=== PATIENT | male | born 2005 | race Caucasian/White ===

== ENCOUNTER 2024-04-18 19:30 | Inpatient (IN) | payer MEDICAID, OTHER, SELFPAY ==
[2024-04-18 21:38] VITALS: BMI 23.9
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
[2024-04-19] MEDS: hydrOXYzine HCL 25 MG TABLET PO ×2 (02:29→21:11)
[2024-04-19 08:47] VITALS: BP 118/71; PULSE 80; RESP 18; TEMP 36.7; O2SAT 99
[2024-04-19 09:29] LABS: Alanine Aminotransferase 26 U/L (0-40); Albumin Level 4.3 g/dL (3.5-5.0); Alkaline Phosphatase 91 U/L (39-117); Anion Gap 13 (12-20); Aspartate Amino Transferase 19 U/L (5-37); Bilirubin Total 0.7 mg/dL (0.0-1.0); Blood Urea Nitrogen 9 mg/dL (9-16); Calcium 9.5 mg/dL (8.4-10.2); Carbon Dioxide 26 mmol/L (22-29); Chloride 105 mmol/L (96-108); Cholesterol 189 mg/dL (<200); Creatinine Clr Calc Pharmacy 150.1; Estimated Glomerular Filt Rate > 60; Glucose Fasting 157 mg/dL (60-99); HDL Cholesterol 54 mg/dL (>40); LDL Cholesterol Calculated 111 mg/dL (<100); Potassium 3.9 mmol/L (3.3-5.1); Sodium 140 mmol/L (135-145); Total Protein 6.8 g/dL (6.5-8.0); Triglycerides 122 mg/dL (<150)
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
[2024-04-19 10:06] VITALS: BMI 24.2
--- NOTE | 2024-04-19 11:34 | P.CONHOSP_ITS ---
History of Present Illness Data of Consult Service Date: 04/19/24 Primary Care Provider: Unknown Physician HPI Reason for consult: Admission H&P Pt is a 18-year-old male with no known significant PMH who is admitted to [facility] psychiatry unit for increasing agitation and anxiety. Patient was recently admitted for new onset psychosis and discharged on olanzapine. Patient and family report noncompliance with home medication. Medical consult for admission H&P. ?Patient denies any acute medical complaints at this time. No chest pain/pressure, palpitations. Denies shortness of breath. No fever, chills, nausea, vomiting, abdominal pain. No headache or acute vision changes. Denies any changes to bowel bladder habits. Labs reviewed, grossly unremarkable. Vital signs stable. Review of Systems 2 Review of Systems: Patient denies any acute medical complaints at this time [facility] Social History Household Members: Family Household Members Other:: Brother, uncle and friends Housing: Unknown / Unable to assess Do you presently have visiting nurse or other home services: No Patient Tobacco Use Status: Never used Tobacco Smoked in Last 30 Days: No e-Cigarette/Vaping Use: Never Used Patient Interested in Nicotine Replacement: No Patient Given Instructions on How to Stop Smoking: No Second Hand Smoke Exposure: No Use of substances other than those prescribed or required for medical reasons: Yes Substance Use Type: Crack/Cocaine and Marijuana Last Used Substance: Unknown Currently Displaying Signs/Symptoms of Drug Intoxication Withdrawal: No Advance Directives: No Advance Directives Information Provided: No Do you have thoughts of harming others: None Do you have a plan to hurt others: No Plan Recently lost weight without trying: Unsure How much weight loss: Unsure Eating poorly because of decreased appetite: No Nutrition screen score: 4 Nutrition Risks: No Nutritional Risk Poor oral hygiene: No Meds Allergies Allergy/AdvReac Type Severity Reaction Status Date / Time No Known Allergies Allergy Verified 04/18/24 21:42 Active Medications: Current Medications Acetaminophen (Acetaminophen 325 Mg Tablet) 650 mg PO Q6H PRN PRN Reason: Headache/Pain Mild Scale (1-3) Al Hydroxide/Mg Hydroxide (Magnesium Hydrox/Alum Hydrox 30 Ml Oral.Susp) 30 ml PO Q6H PRN PRN Reason: Heartburn/Nausea Hydroxyzine HCl (Hydroxyzine Hcl 25 Mg Tablet) 25 mg PO Q6H PRN PRN Reason: Anxiety Last Admin: 04/19/24 02:29 Dose: 25 mg Magnesium Hydroxide (Milk Of Magnesia 30 Ml Oral.Susp) 30 ml PO DAILY PRN PRN Reason: Constipation Nicotine (Nicotine 21 Mg Patch.Td24) 21 mg TRANSDERMA DAILY PRN PRN Reason: smoking cessation Nicotine Polacrilex (Nicotine Polacrilex 2 Mg Gum) 4 mg BUCCAL Q2H PRN PRN Reason: nicotine cravings Olanzapine (Olanzapine 10 Mg Tablet) 10 mg PO BEDTIME MATHEW Olanzapine (Olanzapine 5 Mg Tablet) 5 mg PO TID PRN PRN Reason: agitation Trazodone HCl (Trazodone Hcl 50 Mg Tablet) 50 mg PO BEDTIME MRX1 PRN PRN Reason: Insomnia Home Medications ?Medication ?Instructions ?Recorded ?Confirmed ?Last Taken ?Type olanzapine 10 mg tablet (Zyprexa) 10 mg PO BEDTIME 04/19/24 04/19/24 Unknown History Physical Exam 2 Vital Signs and Narrative: Vital Signs: Last Vital Signs Temp 98.1 F 04/19/24 08:47 Pulse 80 04/19/24 08:47 Resp 18 04/19/24 08:47 BP 118/71 04/19/24 08:47 Pulse Ox 99 04/19/24 08:47 O2 Del Method Room Air 04/19/24 08:47 BMI result Body Mass Index 24.2 General: AOx3, no acute distress Resp: CTA bilaterally CVS: S1, S2, RRR GI: +BS, NT, no distention Skin: Warm, dry Neuro: Cranial nerves II-XII grossly intact bilaterally. Motor grossly intact bilaterally Extremities: No edema Psych: Appropriate affect Results Labs 04/19/24 09:06 Labs: Laboratory Results - last 24 hr 04/19/24 09:06 Anion Gap 13 Estim Creat Clear Calc 150.1 Estimated GFR > 60 Fasting Glucose 157 H Calcium 9.5 Total Bilirubin 0.7 AST 19 ALT 26 Alkaline Phosphatase 91 Total Protein 6.8 Albumin 4.3 Triglycerides 122 Cholesterol 189 LDL Cholesterol, Calc 111 H HDL Cholesterol 54 Assessment and Plan (1) Medical clearance for psychiatric admission: Status: Acute Plan Pt is a 18-year-old male with no known significant PMH who is admitted to psychiatry unit for increasing agitation and anxiety. Patient was recently admitted for new onset psychosis and discharged on olanzapine. Patient and family report noncompliance with home medication. Medical consult for admission H&P. ?Patient denies any acute medical complaints at this time. Mood disorder Plan as per psychiatry Pt otherwise has not acute medical complaints or chronic medical conditions. Will sign of at this time. Thank you for allowing us to participate in the care of this patient.
[2024-04-19 20:00] VITALS: BP 132/69; PULSE 84; RESP 18; TEMP 37; O2SAT 98
[2024-04-19] MEDS: traZODone HCL 50 MG TABLET PO (21:11)
[2024-04-19] MEDS: OLANZapine 10 MG TABLET PO (21:12)
[2024-04-20 08:00] VITALS: BP 118/61; PULSE 76; RESP 16; TEMP 36.4; O2SAT 98
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
[2024-04-20] MEDS: risperiDONE 1 MG TABLET PO ×2 (14:31→20:26)
[2024-04-20 20:00] VITALS: BP 138/79; PULSE 109; RESP 18; TEMP 37.3; O2SAT 98
[2024-04-20] MEDS: OLANZapine 10 MG TABLET PO (20:26)
--- NOTE | 2024-04-21 07:59 | P.PNPSI_ITS ---
Subjective Subjective Date of Service: 04/21/24 Reason For Visit: f29 Interim History: Pt seen w yasminere; pt reports he is ding well taking meds,, sleeping, eating, he denies voices, denies SI or HI. appears very anxious, slept most of the night. PHe is taking olanzapine, which he took at [facility] with little benefit. We discussed trying different, higher potency antipsychotic. Review of Systems Review of Systems Patient denies any acute medical complaints at this time Mental Status Exam Mental Status Exam Narrative: Pt is alert and oriented; behavior is cooperative, friendly and calm; patient is not in distress; dressed in casual attire well groomed, adequate hygiene; mood is described as good and affect congruent, and smiles a lot; eye contact appropriate; Speech is normal rate, volume and prosody and not pressured; no psychomotor agitation/retardation present; thought process is goal directed; Thought content is on AH, but no expressions of any delusional or paranoid ideations; denies any SI/HI. Endorses AH of his name being screamed; some internal preoccupation apparent Patients insight and judgment impaired Diagnostics Vital Signs (24Hr): Vital Signs - 24 hr 04/20/24 08:00 04/20/24 20:00 Temperature 97.6 F 99.1 F Pulse Rate 76 109 H Respiratory Rate 16 18 Blood Pressure 118/61 138/79 Pulse Oximetry 98 98 Oxygen Delivery Method Room Air Room Air BMI result Body Mass Index 24.2 Labs 04/19/24 09:06 Labs: Laboratory Results - last 48 hr 04/19/24 09:06 Sodium 140 Potassium 3.9 Chloride 105 Carbon Dioxide 26 Anion Gap 13 BUN 9 Creatinine 0.74 Estim Creat Clear Calc 150.1 Estimated GFR > 60 Fasting Glucose 157 H Calcium 9.5 Total Bilirubin 0.7 AST 19 ALT 26 Alkaline Phosphatase 91 Total Protein 6.8 Albumin 4.3 Triglycerides 122 Cholesterol 189 LDL Cholesterol, Calc 111 H HDL Cholesterol 54 Medications Medications Current Medications Acetaminophen (Acetaminophen 325 Mg Tablet) 650 mg PO Q6H PRN PRN Reason: Headache/Pain Mild Scale (1-3) Al Hydroxide/Mg Hydroxide (Magnesium Hydrox/Alum Hydrox 30 Ml Oral.Susp) 30 ml PO Q6H PRN PRN Reason: Heartburn/Nausea Hydroxyzine HCl (Hydroxyzine Hcl 25 Mg Tablet) 25 mg PO Q6H PRN PRN Reason: Anxiety Last Admin: 04/19/24 21:11 Dose: 25 mg Magnesium Hydroxide (Milk Of Magnesia 30 Ml Oral.Susp) 30 ml PO DAILY PRN PRN Reason: Constipation Nicotine (Nicotine 21 Mg Patch.Td24) 21 mg TRANSDERMA DAILY PRN PRN Reason: smoking cessation Nicotine Polacrilex (Nicotine Polacrilex 2 Mg Gum) 4 mg BUCCAL Q2H PRN PRN Reason: nicotine cravings Olanzapine (Olanzapine 10 Mg Tablet) 10 mg PO BEDTIME MATHEW Last Admin: 04/20/24 20:26 Dose: 10 mg Olanzapine (Olanzapine 5 Mg Tablet) 5 mg PO TID PRN PRN Reason: agitation Risperidone (Risperidone 1 Mg Tablet) 1 mg PO BID MATHEW Last Admin: 04/20/24 20:26 Dose: 1 mg Trazodone HCl (Trazodone Hcl 50 Mg Tablet) 50 mg PO BEDTIME MRX1 PRN PRN Reason: Insomnia Last Admin: 04/19/24 21:11 Dose: 50 mg Allergies Allergies Allergy/AdvReac Type Severity Reaction Status Date / Time No Known Allergies Allergy Verified 04/18/24 21:42 Assessment & Plan Assessment & Plan (1) Psychosis: Status: Acute Code(s): F29 - Unspecified psychosis not due to a substance or known physiological condition Plan Patient seen with machine long goods helper Patient is a 18-year-old [place] Zealander-speaking male with history of psychotic illness who presents for his 2nd psychiatric hospitalization, brought to the emergency room by his brother for psychotic symptoms. Patient initially says he is fine and not sure why he is at the hospital but then says it was because he was not sleeping and talking to himself that his brother brought him. Patient acknowledges that he has auditory hallucination of a voice screaming his name. He is a little ambivalent about if it bothers him but agrees that it makes it hard for him to sleep. Patient says he has not slept much for the past several days. 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 Patient was recently brought to a psychiatric hospital where he was started on Zyprexa; he said taking it did not alter the voices; he soon stopped taking it, saying he did not want it and that he felt fine. Patient denies any SI or HI; reports smoking cannabis daily; sometimes cocaine but not for several weeks. Seldom alcohol. Formulation/clinical reasoning: It seems that patient is likely in the middle of 1st break for psychotic illness; he says he has not slept for days though currently he does not appear manic. It seems he took some amount of Zyprexa for short period of time though denies that it did anything for his auditory hallucinations. Will need collateral to better understand patient's illness. Patient gave permission to call his older brother Leo and gave his phone number. -patient educated on psychotic illness and the benefits of medication and is amenable to taking antipsychotics. -patient was physically and chemically restrained in the ED however Currently patient in behavioral and impulse control; internally preoccupied; will hold off restarting Zyprexa if possible until can get collateral 04/20 start risperidone 1mg po BID, as olanzapine was not as effective for him for psychosis and delusions. He also signed CV able to show understanding that he is in a psychiatric unit and is in agreement to receive treatment. also explained 3 day notice should he wants to leave before it is recommended by his treatment team. 04/21 continue tx llan Plan: CV Q 15 minute checks Zyprexa p.r.n. Repeat creatinine WNL Fasting blood glucose mildly elevated Reviewed labs from sending facility: UDS positive for cannabis only Lytes, BUN, LFTs, CBC WNL creatinine mildly elevated Reason for continued inpatient stay Substantial Risk for: harm to self, inability to function and rapid decompensation Time Spent With Patient Time: Total time managing care of this patient today ____ minutes.
[2024-04-21] MEDS: risperiDONE 1 MG TABLET PO ×2 (08:51→20:55)
[2024-04-21 08:53] VITALS: BP 137/73; PULSE 70; RESP 16; TEMP 36.4; O2SAT 98
[2024-04-21] MEDS: hydrOXYzine HCL 25 MG TABLET PO (17:10)
[2024-04-21 20:00] VITALS: BP 162/87; PULSE 101; RESP 19; TEMP 36.8; O2SAT 100
[2024-04-21] MEDS: traZODone HCL 50 MG TABLET PO (20:55)
[2024-04-21] MEDS: OLANZapine 10 MG TABLET PO (20:55)
[2024-04-22] MEDS: risperiDONE 1 MG TABLET PO ×2 (08:39→20:10)
[2024-04-22 08:42] VITALS: BP 122/75; PULSE 88; RESP 18; TEMP 36.8; O2SAT 98
[2024-04-22] MEDS: OLANZapine 5 MG TABLET PO (10:17)
--- NOTE | 2024-04-22 10:22 | P.PNPSI_ITS ---
Subjective Subjective Date of Service: 04/22/24 Reason For Visit: f29 Interim History: Pt seen w sara; pt reports he is doing well. taking meds,says he knows they mke him feel better; he is sleeping, eating, he denies voices, denies SI or HI. appears less anxious, slept most of the night. Pt wants to go home and says he intends to take meds after discharge and that his brother is supportive. Medication Compliance: Yes Side effects from medications: No Review of Systems Acute medical concerns: No Medical Review of Systems: unchanged Review of Systems Review of Systems Patient denies any acute medical complaints at this time Mental Status Exam Mental Status Exam Narrative: Pt is alert and oriented; behavior is cooperative, friendly and calm; patient is anxious, dressed in casual attire well groomed, good hygiene; mood is described as good and affect congruent, and smiles easily; eye contact appropriate; Speech is normal rate, volume and prosody and not pressured; no psychomotor agitation/retardation present; thought process is goal directed; Denies AH; denies any SI/HI. Patients insight and judgment improved Diagnostics Vital Signs (24Hr): Vital Signs - 24 hr 04/21/24 20:00 04/22/24 08:42 Temperature 98.2 F 98.2 F Pulse Rate 101 H 88 Respiratory Rate 19 18 Blood Pressure 162/87 H 122/75 Pulse Oximetry 100 98 Oxygen Delivery Method Room Air Room Air BMI result Body Mass Index 24.2 Labs 04/19/24 09:06 Medications Medications Current Medications Acetaminophen (Acetaminophen 325 Mg Tablet) 650 mg PO Q6H PRN PRN Reason: Headache/Pain Mild Scale (1-3) Al Hydroxide/Mg Hydroxide (Magnesium Hydrox/Alum Hydrox 30 Ml Oral.Susp) 30 ml PO Q6H PRN PRN Reason: Heartburn/Nausea Hydroxyzine HCl (Hydroxyzine Hcl 25 Mg Tablet) 25 mg PO Q6H PRN PRN Reason: Anxiety Last Admin: 04/21/24 17:10 Dose: 25 mg Magnesium Hydroxide (Milk Of Magnesia 30 Ml Oral.Susp) 30 ml PO DAILY PRN PRN Reason: Constipation Nicotine (Nicotine 21 Mg Patch.Td24) 21 mg TRANSDERMA DAILY PRN PRN Reason: smoking cessation Nicotine Polacrilex (Nicotine Polacrilex 2 Mg Gum) 4 mg BUCCAL Q2H PRN PRN Reason: nicotine cravings Olanzapine (Olanzapine 10 Mg Tablet) 10 mg PO BEDTIME MATHEW Last Admin: 04/21/24 20:55 Dose: 10 mg Olanzapine (Olanzapine 5 Mg Tablet) 5 mg PO TID PRN PRN Reason: agitation Last Admin: 04/22/24 10:17 Dose: 5 mg Risperidone (Risperidone 1 Mg Tablet) 1 mg PO BID MATHEW Last Admin: 04/22/24 08:39 Dose: 1 mg Trazodone HCl (Trazodone Hcl 50 Mg Tablet) 50 mg PO BEDTIME MRX1 PRN PRN Reason: Insomnia Last Admin: 04/21/24 20:55 Dose: 50 mg Allergies Allergies Allergy/AdvReac Type Severity Reaction Status Date / Time No Known Allergies Allergy Verified 04/18/24 21:42 Assessment & Plan Assessment & Plan (1) Psychosis: Status: Acute Code(s): F29 - Unspecified psychosis not due to a substance or known physiological condition Plan Patient seen with cyber systems operations specialist Patient is a 18-year-old Italian-speaking male with history of psychotic illness who presents for his 2nd psychiatric hospitalization, brought to the emergency room by his brother for psychotic symptoms. Patient initially says he is fine and not sure why he is at the hospital but then says it was because he was not sleeping and talking to himself that his brother brought him. Patient acknowledges that he has auditory hallucination of a voice screaming his name. He is a little ambivalent about if it bothers him but agrees that it makes it hard for him to sleep. Patient says he has not slept much for the past several days. 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 Patient was recently brought to a psychiatric hospital where he was started on Zyprexa; he said taking it did not alter the voices; he soon stopped taking it, saying he did not want it and that he felt fine. Patient denies any SI or HI; reports smoking cannabis daily; sometimes cocaine but not for several weeks. Seldom alcohol. Formulation/clinical reasoning: It seems that patient is likely in the middle of 1st break for psychotic illness; he says he has not slept for days though currently he does not appear manic. It seems he took some amount of Zyprexa for short period of time though denies that it did anything for his auditory hallucinations. Will need collateral to better understand patient's illness. Patient gave permission to call his older brother Leo and gave his phone number. -patient educated on psychotic illness and the benefits of medication and is amenable to taking antipsychotics. -patient was physically and chemically restrained in the ED however Currently patient in behavioral and impulse control; internally preoccupied; will hold off restarting Zyprexa if possible until can get collateral 04/20 start risperidone 1mg po BID, as olanzapine was not as effective for him for psychosis and delusions. He also signed CV able to show understanding that he is in a psychiatric unit and is in agreement to receive treatment. also explained 3 day notice should he wants to leave before it is recommended by his treatment team. 04/21 continue tx llan 04/22 continue tx plan Plan: CV Q 15 minute checks Zyprexa p.r.n. Repeat creatinine WNL Fasting blood glucose mildly elevated Reviewed labs from sending facility: UDS positive for cannabis only Lytes, BUN, LFTs, CBC WNL creatinine mildly elevated Reason for continued inpatient stay Substantial Risk for: harm to self and inability to function Time Spent With Patient Time: Total time managing care of this patient today ____ minutes.
[2024-04-22 20:00] VITALS: BP 133/74; PULSE 104; RESP 16; TEMP 36.9; O2SAT 98
[2024-04-22] MEDS: OLANZapine 10 MG TABLET PO (20:11)
[2024-04-23] MEDS: risperiDONE 1 MG TABLET PO ×2 (08:45→20:55)
[2024-04-23 08:46] VITALS: BP 114/58; PULSE 80; RESP 18; TEMP 36.9; O2SAT 98
[2024-04-23] MEDS: OLANZapine 5 MG TABLET PO (11:47)
--- NOTE | 2024-04-23 11:47 | P.PNPSI_ITS ---
Subjective Subjective Date of Service: 04/23/24 Reason For Visit: f29 Interim History: Pt is visibel in milieu; taking meds; he is sleeping, eating, he denies voices, denies SI or HI. appears less anxious, slept most of the night. Pt wants to go home and says he intends to take meds after discharge and that his brother is supportive. Medication Compliance: Yes Side effects from medications: No Attending Groups: Intermittent Review of Systems Acute medical concerns: No Review of Systems Review of Systems Patient denies any acute medical complaints at this time Mental Status Exam Mental Status Exam Narrative: Pt is alert and oriented; behavior is cooperative, friendly and calm; patient is anxious, dressed in casual attire well groomed, good hygiene; mood is described as good and affect congruent, and smiles easily; eye contact appropriate; Speech is normal rate, volume and prosody and not pressured; no psychomotor agitation/retardation present; thought process is goal directed; Denies AH; denies any SI/HI. Patients insight and judgment improved Diagnostics Vital Signs (24Hr): Vital Signs - 24 hr 04/22/24 20:00 04/23/24 08:46 Temperature 98.5 F 98.4 F Pulse Rate 104 H 80 Respiratory Rate 16 18 Blood Pressure 133/74 114/58 L Pulse Oximetry 98 98 Oxygen Delivery Method Room Air Room Air BMI result Body Mass Index 24.2 Labs 04/19/24 09:06 Medications Medications Current Medications Acetaminophen (Acetaminophen 325 Mg Tablet) 650 mg PO Q6H PRN PRN Reason: Headache/Pain Mild Scale (1-3) Al Hydroxide/Mg Hydroxide (Magnesium Hydrox/Alum Hydrox 30 Ml Oral.Susp) 30 ml PO Q6H PRN PRN Reason: Heartburn/Nausea Hydroxyzine HCl (Hydroxyzine Hcl 25 Mg Tablet) 25 mg PO Q6H PRN PRN Reason: Anxiety Last Admin: 04/21/24 17:10 Dose: 25 mg Magnesium Hydroxide (Milk Of Magnesia 30 Ml Oral.Susp) 30 ml PO DAILY PRN PRN Reason: Constipation Nicotine (Nicotine 21 Mg Patch.Td24) 21 mg TRANSDERMA DAILY PRN PRN Reason: smoking cessation Nicotine Polacrilex (Nicotine Polacrilex 2 Mg Gum) 4 mg BUCCAL Q2H PRN PRN Reason: nicotine cravings Olanzapine (Olanzapine 10 Mg Tablet) 10 mg PO BEDTIME [facility] Last Admin: 04/22/24 20:11 Dose: 10 mg Olanzapine (Olanzapine 5 Mg Tablet) 5 mg PO TID PRN PRN Reason: agitation Last Admin: 04/22/24 10:17 Dose: 5 mg Risperidone (Risperidone 1 Mg Tablet) 1 mg PO BID [facility] Last Admin: 04/23/24 08:45 Dose: 1 mg Trazodone HCl (Trazodone Hcl 50 Mg Tablet) 50 mg PO BEDTIME MRX1 PRN PRN Reason: Insomnia Last Admin: 04/21/24 20:55 Dose: 50 mg Allergies Allergies Allergy/AdvReac Type Severity Reaction Status Date / Time No Known Allergies Allergy Verified 04/18/24 21:42 Assessment & Plan Assessment & Plan (1) Psychosis: Status: Acute Code(s): F29 - Unspecified psychosis not due to a substance or known physiological condition Plan Patient seen with aircraft pneudraulics repairer Patient is a 18-year-old Welsh-speaking male with history of psychotic illness who presents for his 2nd psychiatric hospitalization, brought to the emergency room by his brother for psychotic symptoms. Patient initially says he is fine and not sure why he is at the hospital but then says it was because he was not sleeping and talking to himself that his brother brought him. Patient acknowledges that he has auditory hallucination of a voice screaming his name. He is a little ambivalent about if it bothers him but agrees that it makes it hard for him to sleep. Patient says he has not slept much for the past several days. 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 Patient was recently brought to a psychiatric hospital where he was started on Zyprexa; he said taking it did not alter the voices; he soon stopped taking it, saying he did not want it and that he felt fine. Patient denies any SI or HI; reports smoking cannabis daily; sometimes cocaine but not for several weeks. Seldom alcohol. Formulation/clinical reasoning: It seems that patient is likely in the middle of 1st break for psychotic illness; he says he has not slept for days though currently he does not appear manic. It seems he took some amount of Zyprexa for short period of time though denies that it did anything for his auditory hallucinations. Will need collateral to better understand patient's illness. Patient gave permission to call his older brother Leo and gave his phone number. -patient educated on psychotic illness and the benefits of medication and is amenable to taking antipsychotics. -patient was physically and chemically restrained in the ED however Currently patient in behavioral and impulse control; internally preoccupied; will hold off restarting Zyprexa if possible until can get collateral 04/20 start risperidone 1mg po BID, as olanzapine was not as effective for him for psychosis and delusions. He also signed CV able to show understanding that he is in a psychiatric unit and is in agreement to receive treatment. also explained 3 day notice should he wants to leave before it is recommended by his treatment team. 04/21 continue tx llan 04/22 continue tx plan 04/23 continue tx Plan: CV Q 15 minute checks Zyprexa p.r.n. Repeat creatinine WNL Fasting blood glucose mildly elevated Reviewed labs from sending facility: UDS positive for cannabis only Lytes, BUN, LFTs, CBC WNL creatinine mildly elevated Reason for continued inpatient stay Substantial Risk for: harm to self and inability to function Time Spent With Patient Time: Total time managing care of this patient today ____ minutes.
[2024-04-23] MEDS: hydrOXYzine HCL 25 MG TABLET PO (17:00)
[2024-04-23 20:00] VITALS: BP 134/74; PULSE 75; RESP 16; TEMP 36.3; O2SAT 99
[2024-04-23] MEDS: OLANZapine 10 MG TABLET PO (20:55)
[2024-04-23] MEDS: traZODone HCL 50 MG TABLET PO (20:55)
[2024-04-24 08:00] VITALS: BP 115/69; PULSE 80; RESP 16; TEMP 36.4; O2SAT 100
[2024-04-24] MEDS: risperiDONE 1 MG TABLET PO ×2 (08:00→20:21)
--- NOTE | 2024-04-24 09:40 | P.PNPSI_ITS ---
Subjective Subjective Date of Service: 04/24/24 Reason For Visit: f29 Interim History: Met with patient; discussed with team; reviewed chart; gallery or museum curator present Patient had significantly improved and all psychotic symptoms, AH, delusional thinking resolved. He was in good behavioral and impulse control, getting along well with peers and staff. Patient was initially started on Zyprexa; was then also started on Risperdal and both were continued. Front Desk Coordinator with patient discussed that it is unclear which medication, the Risperdal other Zyprexa took away his auditory hallucinations, for which he was grateful. Patient understood and said he would discuss it with his doctor once he gets back to [place] and understood the goal was for him to be on only 1 medication to take away AH. Mental Status Exam Mental Status Exam Narrative: Pt is alert and oriented; behavior is cooperative, friendly and calm; dressed in casual attire well groomed, good hygiene; mood is described as good and affect congruent, appropriate, bright and calm; eye contact appropriate; Speech is normal rate, volume and prosody and not pressured; no psychomotor agitation/retardation present; thought process is goal directed; Denies AH and no evidence of internal preoccupation; denies any SI/HI. Patients insight and judgment fair and adequate Diagnostics Vital Signs (24Hr): Vital Signs - 24 hr 04/23/24 20:00 04/24/24 08:00 Temperature 97.4 F 97.5 F Pulse Rate 75 80 Respiratory Rate 16 16 Blood Pressure 134/74 115/69 Pulse Oximetry 99 100 Oxygen Delivery Method Room Air Room Air BMI result Body Mass Index 24.2 Labs 04/19/24 09:06 Medications Medications Current Medications Acetaminophen (Acetaminophen 325 Mg Tablet) 650 mg PO Q6H PRN PRN Reason: Headache/Pain Mild Scale (1-3) Al Hydroxide/Mg Hydroxide (Magnesium Hydrox/Alum Hydrox 30 Ml Oral.Susp) 30 ml PO Q6H PRN PRN Reason: Heartburn/Nausea Hydroxyzine HCl (Hydroxyzine Hcl 25 Mg Tablet) 25 mg PO Q6H PRN PRN Reason: Anxiety Last Admin: 04/23/24 17:00 Dose: 25 mg Magnesium Hydroxide (Milk Of Magnesia 30 Ml Oral.Susp) 30 ml PO DAILY PRN PRN Reason: Constipation Nicotine (Nicotine 21 Mg Patch.Td24) 21 mg TRANSDERMA DAILY PRN PRN Reason: smoking cessation Nicotine Polacrilex (Nicotine Polacrilex 2 Mg Gum) 4 mg BUCCAL Q2H PRN PRN Reason: nicotine cravings Olanzapine (Olanzapine 10 Mg Tablet) 10 mg PO BEDTIME MATHEW Last Admin: 04/23/24 20:55 Dose: 10 mg Olanzapine (Olanzapine 5 Mg Tablet) 5 mg PO TID PRN PRN Reason: agitation Last Admin: 04/23/24 11:47 Dose: 5 mg Risperidone (Risperidone 1 Mg Tablet) 1 mg PO BID MATHEW Last Admin: 04/24/24 08:00 Dose: 1 mg Trazodone HCl (Trazodone Hcl 50 Mg Tablet) 50 mg PO BEDTIME MRX1 PRN PRN Reason: Insomnia Last Admin: 04/23/24 20:55 Dose: 50 mg Allergies Allergies Allergy/AdvReac Type Severity Reaction Status Date / Time No Known Allergies Allergy Verified 04/18/24 21:42 Assessment & Plan Assessment & Plan (1) Psychosis: Status: Acute Code(s): F29 - Unspecified psychosis not due to a substance or known physiological condition Plan Patient seen with knifeman Patient is a 18-year-old Senegalese-speaking male with history of psychotic illness who presents for his 2nd psychiatric hospitalization, brought to the emergency room by his brother for psychotic symptoms. Patient initially says he is fine and not sure why he is at the hospital but then says it was because he was not sleeping and talking to himself that his brother brought him. Patient acknowledges that he has auditory hallucination of a voice screaming his name. He is a little ambivalent about if it bothers him but agrees that it makes it hard for him to sleep. Patient says he has not slept much for the past several days. 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 Patient was recently brought to a psychiatric hospital where he was started on Zyprexa; he said taking it did not alter the voices; he soon stopped taking it, saying he did not want it and that he felt fine. Patient denies any SI or HI; reports smoking cannabis daily; sometimes cocaine but not for several weeks. Seldom alcohol. Formulation/clinical reasoning: It seems that patient is likely in the middle of 1st break for psychotic illness; he says he has not slept for days though currently he does not appear manic. It seems he took some amount of Zyprexa for short period of time though denies that it did anything for his auditory hallucinations. Will need collateral to better understand patient's illness. Patient gave permission to call his older brother Leo and gave his phone number. -patient educated on psychotic illness and the benefits of medication and is amenable to taking antipsychotics. -patient was physically and chemically restrained in the ED however Currently patient in behavioral and impulse control; internally preoccupied; will hold off restarting Zyprexa if possible until can get collateral 04/20 start risperidone 1mg po BID, as olanzapine was not as effective for him for psychosis and delusions. He also signed CV able to show understanding that he is in a psychiatric unit and is in agreement to receive treatment. also explained 3 day notice should he wants to leave before it is recommended by his treatment team. 04/21 continue tx llan 04/22 continue tx plan 04/23 continue tx 04/24 Patient had significantly improved and all psychotic symptoms, AH, delusional thinking resolved. He was in good behavioral and impulse control, getting along well with peers and staff. Patient was initially started on Zyprexa; was then also started on Risperdal and both were continued. Front Desk Coordinator with patient discussed that it is unclear which medication, the Risperdal other Zyprexa took away his auditory hallucinations, for which he was grateful. Patient understood and said he would discuss it with his doctor once he gets back to [place] and understood the goal was for him to be on only 1 medication to take away AH. Patient is asking for discharge and his brother, who has been visiting, also agrees that patient is back to his regular self and ready to come home. Patient has remained in good behavioral and impulse control throughout his time in the unit, getting along with both peers and staff, sleeping well and feeling back to his regular self. Patient has much improved insight and judgment, explaining that he knows he needs medications to help with his psychotic symptoms and will continue taking them. Patient is returning to live with his very supportive family and then will eventually returned to [place]. Patient is not in imminent risk from harm to self or others and request for discharge honored. From review of the chart it seems that patient psychotic symptoms (AH/delusional thinking) resolved after he was started on Risperdal 1 mg b.i.d.. Of course improved symptoms also coincided with continuing on Zyprexa; however while it is possible that Zyprexa was contributory, typically they antipsychotic that is going to work best is the 1 that early on eliminates or reduces psychotic symptoms, making it much more likely that Risperdal is the effective medication. Because of this and to mitigate risks of antipsychotic side effects, financial writer lowered his Zyprexa to 5 mg q.h.s., down from 10 mg and continued him on Risperdal 1 mg b.i.d. Hopefully patient will be able to determine best medication regimen once he starts working with his outpatient provider Plan: CV Q 15 minute checks Zyprexa p.r.n. Repeat creatinine WNL Fasting blood glucose mildly elevated Reviewed labs from sending facility: UDS positive for cannabis only Lytes, BUN, LFTs, CBC WNL creatinine mildly elevated Patient educated on: diagnosis and medication risk/benefits Informed Consent: understands Reason for continued inpatient stay Substantial Risk for: stable for discharge Time Spent With Patient Time: Total time managing care of this patient today ____ minutes.
[2024-04-24] MEDS: OLANZapine 5 MG TABLET PO (13:23)
--- NOTE | 2024-04-24 18:07 | PM.PSYDC ---
DS: Providers Provider Date of Service: 04/25/24 Date of admission: 04/18/24 19:30 Date of discharge: 04/25/24 Primary care physician: Unknown Physician Attending physician on admission: Jose Yost Consults: 04/18/24 21:51 Consult to Hospitalist Routine Comment: Consulting Provider: Hospitalist Reason For Exam: direct admission Attending physician on discharge: Jose Yost DS: Diagnosis Discharge Diagnosis (1) Psychosis: Status: Acute DS: Medications Discharge Medications Home Medications: Previous Rx's ?Medication ?Instructions ?Recorded olanzapine 5 mg tablet 5 mg PO BEDTIME 30 days #30 tabs 04/24/24 risperidone 1 mg tablet 1 mg PO BID 30 days #60 tabs 04/24/24 risperidone 1 mg tablet (Risperdal) 1 mg PO BID 30 days #60 tabs 04/24/24 trazodone 50 mg tablet 50 mg PO BEDTIME PRN Insomnia 30 04/24/24 days #30 tabs Data Data Completed and Pending Completed studies during hospitalization [Text1]: 04/19/24 09:06 Sodium 140 Potassium 3.9 Chloride 105 Carbon Dioxide 26 Anion Gap 13 BUN 9 Creatinine 0.74 Estim Creat Clear Calc 150.1 Estimated GFR > 60 Fasting Glucose 157 H Calcium 9.5 Total Bilirubin 0.7 AST 19 ALT 26 Alkaline Phosphatase 91 Total Protein 6.8 Albumin 4.3 Triglycerides 122 Cholesterol 189 LDL Cholesterol, Calc 111 H HDL Cholesterol 54 DS: Summary Hospital Course Hospital Course: Patient seen with stoneworking belt sander Patient is a 18-year-old Angolan-speaking male with history of psychotic illness who presents for his 2nd psychiatric hospitalization, brought to the emergency room by his brother for psychotic symptoms. Patient initially says he is fine and not sure why he is at the hospital but then says it was because he was not sleeping and talking to himself that his brother brought him. Patient acknowledges that he has auditory hallucination of a voice screaming his name. He is a little ambivalent about if it bothers him but agrees that it makes it hard for him to sleep. Patient says he has not slept much for the past several days. 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 Patient was recently brought to a psychiatric hospital where he was started on Zyprexa; he said taking it did not alter the voices; he soon stopped taking it, saying he did not want it and that he felt fine. Patient denies any SI or HI; reports smoking cannabis daily; sometimes cocaine but not for several weeks. Seldom alcohol. Formulation/clinical reasoning: It seems that patient is likely in the middle of 1st break for psychotic illness; he says he has not slept for days though currently he does not appear manic. It seems he took some amount of Zyprexa for short period of time though denies that it did anything for his auditory hallucinations. Will need collateral to better understand patient's illness. Patient gave permission to call his older brother Leo and gave his phone number. -patient educated on psychotic illness and the benefits of medication and is amenable to taking antipsychotics. -patient was physically and chemically restrained in the ED however Currently patient in behavioral and impulse control; internally preoccupied; will hold off restarting Zyprexa if possible until can get collateral 04/20 start risperidone 1mg po BID, as olanzapine was not as effective for him for psychosis and delusions. He also signed CV able to show understanding that he is in a psychiatric unit and is in agreement to receive treatment. also explained 3 day notice should he wants to leave before it is recommended by his treatment team. 04/24 Patient had significantly improved and all psychotic symptoms, AH, delusional thinking resolved. He was in good behavioral and impulse control, getting along well with peers and staff. Patient was initially started on Zyprexa; was then also started on Risperdal and both were continued. College Recruiter with patient discussed that it is unclear which medication, the Risperdal other Zyprexa took away his auditory hallucinations, for which he was grateful. Patient understood and said he would discuss it with his doctor once he gets back to [place] and understood the goal was for him to be on only 1 medication to take away AH. Patient is asking for discharge and his brother, who has been visiting, also agrees that patient is back to his regular self and ready to come home. Patient has remained in good behavioral and impulse control throughout his time in the unit, getting along with both peers and staff, sleeping well and feeling back to his regular self. Patient has much improved insight and judgment, explaining that he knows he needs medications to help with his psychotic symptoms and will continue taking them. Patient is returning to live with his very supportive family and then will eventually returned to [place]. Patient is not in imminent risk from harm to self or others and request for discharge honored. From review of the chart it seems that patient psychotic symptoms (AH/delusional thinking) resolved after he was started on Risperdal 1 mg b.i.d.. Of course improved symptoms also coincided with continuing on Zyprexa; however while it is possible that Zyprexa was contributory, typically they antipsychotic that is going to work best is the 1 that early on eliminates or reduces psychotic symptoms, making it much more likely that Risperdal is the effective medication. Because of this and to mitigate risks of antipsychotic side effects, parts data writer lowered his Zyprexa to 5 mg q.h.s., down from 10 mg and continued him on Risperdal 1 mg b.i.d. Hopefully patient will be able to determine best medication regimen once he starts working with his outpatient provider Time spent discussing smoking cessation with patient: 3 to 10 minutes Status at Discharge Functional status at discharge: independent ambulation Overall status at discharge: patient is back to baseline Time Spent with Patient Time attestation: Total time managing care of this patient today ____ minutes. Time spent: Less than 30 minutes Discharge Plan Discharge Anticipated Discharge Date/Time: 04/25/24 08:00 Patient Disposition: Home, Self-Care Discharge Diagnosis: Psychotic disorder Referrals: [facility] [Other] - 1 Week ([facility] Information for accessing mental health resources.) Physician,Unknown J [Primary Care Provider] - 1 Week Discharge Medications: New risperidone 1 mg Tablet 1 mg PO BID 30 Days Qty: 60 0RF trazodone 50 mg Tablet 50 mg PO BEDTIME PRN (Reason: Insomnia) 30 Days Qty: 30 0RF olanzapine 5 mg tablet 5 mg PO BEDTIME 30 Days Qty: 30 0RF risperidone [Risperdal] 1 mg tablet 1 mg PO BID 30 Days Qty: 60 0RF Discontinued olanzapine [Zyprexa] 10 mg Tablet 10 mg PO BEDTIME Discharge Orders: Discharge Order (Routine); Ordered 04/25/24 Ordered By: Jose Yost Diet: Regular diet Activity on Discharge: As tolerated Stand Alone Forms: Patient Portal Discharge page, Community Support Print Language: Angolan Care Plan Goals: Maintain mood and safe behaviors Take medications as prescribed Continue to pursue sobriety Practice coping skills Continue with outpatient providers and reach out to them as needed Health Concerns: Mood stability and behaviors Sobriety Plan of Treatment: Follow up with your PCP, psychiatric provider and other outpatient providers regarding above concerns Take medications as prescribed Assessment: Risk assessment at time of discharge:? Patient was interviewed prior to discharge and found to be fully oriented and without any SI or HI. Patient has improved insight and judgment and wants to continue treatment. Patient is not in imminent risk of harm to self or others and has a safety plan that includes presenting to the closest ER or calling 911 if feeling unsafe.? Patient has been observed closely by nursing and unit staff throughout admission; patient has not engaged in any behaviors that suggest dangerousness to self or others and has demonstrated appropriate behaviors and impulse control Discharge Date/Time: 04/25/24 08:02
[2024-04-24 20:00] VITALS: BP 122/60; PULSE 92; RESP 18; TEMP 36.8; O2SAT 97
[2024-04-24] MEDS: OLANZapine 10 MG TABLET PO (20:21)
[2024-04-24] MEDS: traZODone HCL 50 MG TABLET PO (20:21)
[2024-04-25] MEDS: risperiDONE 1 MG TABLET PO (07:45)
== END 2024-04-25 08:02 | disposition home or self-care (01) | DRG 885 ==
PROVIDERS: Psychiatry & Neurology Psychiatry; Admitting Provider Psychiatry & Neurology Psychiatry; Visit Provider Psychiatry & Neurology Psychiatry
DX: F23 Brief psychotic disorder (principal); Z79.899 Other long term (current) drug therapy
CPT/HCPCS: 36415; 80053; 80061

== ENCOUNTER → 2024-04-18 19:30 | Outpatient (BNV) | payer SELFPAY | PROVIDERS: Admitting Provider Psychiatry & Neurology Psychiatry; Visit Provider Psychiatry & Neurology Psychiatry | DX: F29 Unspecified psychosis not due to a substance or known physiological condition (principal) | CPT/HCPCS: 90792; 99231; 99232; 99238 ==

== ENCOUNTER → 2024-04-18 19:30 | Outpatient (BNV) | payer OTHER, MEDICAID, SELFPAY | PROVIDERS: Admitting Provider Psychiatry & Neurology Psychiatry; Visit Provider Student in an Organized Health Care Education/Training Program | DX: Z02.2 Encounter for examination for admission to residential institution (principal) | CPT/HCPCS: 99429 ==